=== PATIENT | female | born 1985 | race Two or more races ===

== ENCOUNTER 2018-07-08 06:30 | Inpatient (IN) | payer OTHER ==
[2018-07-08] MEDS ORDERED: ELECTROLYTE-148 SOLN 500 ML IV SCH (07:00)
[2018-07-08] MEDS ORDERED: ELECTROLYTE-148 SOLN 1,000 ML IV SCH ×2 (07:30→08:15)
[2018-07-08] MEDS ORDERED: CITRIC ACID/SODIUM CITRATE 30 ML UNIT-DOSE CUP PO ONE ×2 (08:08→11:00)
[2018-07-08 08:15] VITALS: BMI 29.0
[2018-07-08] MEDS ORDERED: OXYTOCIN 20 UNITS in 0.9% NS 20 UNIT/1,000 ML INFUS.BAG IV ONE (08:18)
--- NOTE | 2018-07-08 08:18 | HP ---
Past Medical History - Primary Care Physician PCP:: Ildefonso Scott - Admission Chief Complaint: repeat ltcs History of Present Illness: for repeat lt c s History Source: Patient Limitations to Obtaining History: No Limitations - Past Medical History DIRECTOR AIRPORT: No: Alzheimer's, CVA, Dementia, Migraine, Multiple Sclerosis, Peripheral Neuropathy, Parkinson's, Seizure, Syncope, TIA, Vertigo, Other Cardiovascular: No: AFIB, Aneurysm, Aortic Insufficiency, Aortic Stenosis, CAD, CHF, Deep Vein Thrombosis, HTN, Hyperlipdemia, RI, Mitral Insufficiency, Mitral Stenosis, Murmur, Pulmonary Hypertension, Other Pulmonary: No: Asthma, Bronchitis, Cancer, COPD, O2 Dependent, Pneumonia, Previously Intubated, Pulmonary Embolus, Pulmonary Fibrosis, Sleep Apnea, Other Gastrointestinal: No: Ascites, Cancer, Constipation, Crohn's Disease, Diverticulitis, Diverticulosis, Esophageal Varices, Gastritis, GERD, GI Bleed, Hemorrhoids, Hiatal Hernia, Inflamatory Bowel Disease, Irritable Bowel Disease, Pancreatitis, Peptic Ulcer Disease, Ulcerative Colitis, Other Hepatobiliary: No: Cirrhosis, Cholelithiasis, Cholecystitis, Choledocholithiasis , Hepatitis A, Hepatitis B, Hepatitis C, Other Renal/: No: Renal Failure, Renal Inusuff, BPH, Cancer, Hematuria, Hemodialysis , Neurogenic Bladder, Renal Calculi, UTI, Other Reproductive: No: Ectopic , Endometriosis, Fibroids, PID, Polycystic Ovary Syndrome, Postmenopausal, Other ...: 2 ...Para: 1 ...Term: 1 ...: 0 ...Spon : 0 ...Induced : 0 ...Multiple Gestation: 0 ... Weeks Gestation by Dates: 39 ...EDC by Dates: 07/12/18 ...EDC by Sono: 07/12/18 Heme/Onc: No: Anemia, B12 Deficiency, Bleeding Disorder, Cancer, Current Chemotherapy, Current Radiation Therapy, Hemochromatosis, Hypercoaguable State, Myeloproliferative Synd, Sickle Cell Disease, Sickle Cell Trait, Thrombocytopenia, Other Infectious Disease: No: AIDS, C-Diff, Herpes Zoster, HIV, MRSA, STD's, Tuberculosis, VREF, Other Psych: No: Addictions, Anxiety, Bipolar, Depression, Panic, Psychosis, Schizophrenia, Other Musculoskeletal: No: Bursitis, Chronic low back pain, Hemiparesis, Hemiplegia, Osteoarthritis, Paraplegia, Other Rheumatology: No: Fibromyalgia, Gout, Lupus, Rheumatoid Arthritis, Sarcoidosis, Vasculitis, Other ENT: No: Allergic Rhinitis, Sinusitis, Other Endocrine: No: Noah's Disease, Miriam's Disease, Diabetes Insipidus, Diabetes Mellitus, Hyperparathyroidism, Hyperthyroidism, Hypothyroidism, Osteopenia, SIADH, Other Dermatology: No: Basal Cell, Cellulitis, Eczema, Melanoma, Psoriasis, Squamous Cell, Other Additional Medical History: n/ a - Past Surgical History Past Surgical History: Yes: Hx Myomectomy: No Hx Transabdominal Cerclage: No Additional Surgical History: n/ a - Advance Directives Advance Directives: No: Living Will, Health Care Proxy, DNR, Organ Donor, Tissue Donor, MOLST - Smoking History Smoking history: Never smoked Have you smoked in the past 12 months: No - Alcohol/Substance Use Hx Alcohol Use: No History of Substance Use: reports: None - Social History Usual Living Arrangement: No: Alone, With Spouse, With Parent, With Significant Other, With Child, Assisted Living, [facility], Other ADL: Independent History of Recent Travel: No (none ) Home Medications - Allergies Allergies/Adverse Reactions: Allergies Allergy/AdvReac Type Severity Reaction Status Date / Time No Known Allergies Allergy Verified 07/08/18 07:56 - Home Medications Home Medications: Ambulatory Orders One Tablet 1 tab PO DAILY 07/08/18 Family Disease History - Family Disease History Family History: Unremarkable (none) Review of Systems Unable to obtain ROS, reason: none - Review of Systems Constitutional: denies: No Symptoms, Chills, Diaphoresis, Fever, Lethargy, Loss of Appetite, Malaise, Night Sweats, Unintentional Wgt. Loss, Weakness, Other Eyes: denies: No Symptoms, Blind Spots, Blurred Vision, Double Vision, Eye Pain , Floaters, Photophobia, Recent Change in Vision, Other HENT: denies: No Symptoms, Difficult Swallowing, Ear Discharge, Ear Pain, Epistaxis, Gingival Bleeding, Hearing Loss, Mouth Swelling, Nasal Congestion, Ocular Prosthesis, Throat Pain, Toothache, Ringing in Ears, Other Neck: denies: No Symptoms, Decreased ROM, Lumps, Pain on Movement, Stiffness, Swollen Glands, Tenderness, Other Cardiovascular: denies: No Symptoms, Chest Pain, Edema, Palpitations, Shortness of Breath, Other Gastrointestinal: denies: No Symptoms, Abdominal Pain, Bloating, Constipation, Diarrhea, Dysphagia, Indigestion, Melena, Nausea, Rectal Bleeding, Vomiting, Vomiting Blood, Other Genitourinary: denies: No Symptoms, Burning, Discharge, Dysuria, Flank Pain, Frequency, Hematuria, Incontinence, Lesions, Menses, Pain, Testicular Mass, Testicular Pain, Testicular Swelling, Urgency, Vaginal Bleeding, Other Breasts: denies: No Symptoms Reported, See HPI, Breast Implants, Discharge from Nipple, Lumps, Pain, Skin Changes, Other Musculoskeletal: denies: No Symptoms, Back Pain, Crepitus, Decreased ROM, Extremity Pain, Joint Pain, Joint Swelling, Muscle Pain, Muscle Cramps, Muscle Weakness, Other Integumentary: denies: No Symptoms, Blister, Bruising, Change in Color, Eczema, Erythema, Incision, Lesions, Lump, Pallor, Pruritis, Rash, Wound, Other Neurological: denies: No Symptoms, Change in LOC, Change in Speech, Confusion, Dizziness, Headache, Incoordination, Numbness, Parasthesia, Pre-Existing Deficit , Seizure, Syncope, Tremors, Unsteady Gait, Weakness, Other Endocrine: denies: No Symptoms, Excessive Sweating, Flushing, Increased Hunger, Increased Thirst, Intolerance to Cold, Intolerance to Heat, Unexplained Weight Gain, Unexplained Weight Loss, Other Hematology/Lymphatic: denies: No Symptoms, Easily Bruised, Excessive Bleeding, Swollen Glands, Other Physical Exam - Maternity Constitutional: Yes: Well Nourished, No Distress, Calm Eyes: Yes: WNL, Conjunctiva Clear, EOM Intact HENT: Yes: WNL, Atraumatic, Normocephalic Neck: Yes: WNL, Supple, Trachea Midline Cardiovascular: Yes: WNL, Regular Rate and Rhythm Breast(s): Yes: WNL - Abdominal Exam/OB Fundal Height: 39 Number of Fetuses: Single Presentation: Vertex Contractions: Yes Regularity: Irregular Intensity: Mild/Mod Monitor Mode: External Heart Rate Location: [facility] Category: I Accelerations: Uniform Decelerations: None - Vaginal Exam/OB Vaginal Bleediing: No Speculum Exam: No Dilatation (cm): 1cm Amniotic Membrane Status: Intact Presentation: Vertex/Position Station: -3 - Physical Exam Musculoskeletal: No: WNL, Back Pain, Joint Stiffness, Joint Swelling, Muscle Pain, Muscle Weakness, Other Extremities: No: WNL, Amputation, Calf Tenderness, Cold, Cool, Cyanosis, Deformity, Delayed Capillary Refill, Erythema, External Rotation, Internal Rotation, Pallor, Shortened, Other Edema: Yes Edema: LUE: 1+, RUE: 1+, LLE: 1+, RLE: 1+ Integumentary: No: WNL, Body Piercing, Bruising, Erythema, Incision, Jaundice, Laceration, Petechiae, Pressure Ulcer, Rash, Skin Tear, Tattoos, Tenting, Onychomycosis, Venous Stasis Changes, Other Deep Tendon Reflex Grade: Normal +2 ...Motor Strength: WNL, LUE, LLE, RUE, RLE Psychiatric: No: WNL, Alert, Oriented, Agitated, Suicidal Ideation, Other Hemorrhage Risk Assessment - Risk Factors Medium Risk Factors: Yes: Prior , uterine surgery,or multiple laparotomies High Risk Factors: Yes: None Risk Score: 1 Risk Level: Medium Risk Problem List - Problems (1) delivery delivered Code(s): O82 - ENCOUNTER FOR DELIVERY WITHOUT INDICATION (2) deliv due to previous difficult deliv, deliv, curr hospitaliz Code(s): O82 - ENCOUNTER FOR DELIVERY WITHOUT INDICATION; Z87.59 - PERSONAL HISTORY OF COMP OF PREG, CHLDBRTH AND THE PUERP Assessment/Plan for repeat c section due to contractions from previous c section
[2018-07-08] MEDS ORDERED: PHENYLEPHRINE HCL 10 MG/1 ML SINGLE DOSE VIAL ONE (08:25)
[2018-07-08] MEDS ORDERED: PROPOFOL 20 ML ONE (08:28)
[2018-07-08] MEDS ORDERED: SUCCINYLCHOLINE CHLORIDE 200 MG/10 ML VIAL ONE (08:28)
[2018-07-08] MEDS ORDERED: ceFAZolin SODIUM 1 GM VIAL ONE (08:50)
[2018-07-08] MEDS ORDERED: morphine SULFATE/Preservative Free 0.5 MG/ML (1cc Syringe) ONE (08:53)
[2018-07-08] MEDS ORDERED: ESMOLOL HCL 100,000 MCG/10 ML VIAL ONE (09:06)
[2018-07-08] MEDS ORDERED: OXYTOCIN 10 UNITS/ML VIAL ONE (09:07)
[2018-07-08] MEDS ORDERED: LIDOCAINE HCL 4% TOPICAL SOLN (50 ML/BOTTLE) ONE (09:07)
[2018-07-08] MEDS ORDERED: KETOROLAC TROMETHAMINE 30 MG/1 ML VIAL ONE (09:20)
[2018-07-08] MEDS ORDERED: ONDANSETRON 4 MG/2 ML VIAL IVPUSH PRN (09:44)
[2018-07-08] MEDS ORDERED: oxyCODONE HCL 5 MG TABLET PO PRN (10:44)
[2018-07-08] MEDS ORDERED: METHYLERGONOVINE MALEATE 0.2 MG/1 ML AMP IM PRN (10:44)
[2018-07-08] MEDS ORDERED: IBUPROFEN 600 MG TABLET (FP) PO PRN (10:44)
[2018-07-08] MEDS ORDERED: OXYTOCIN 20 UNITS in 0.9% NS 20 UNIT/1,000 ML INFUS.BAG IV SCH (10:45)
[2018-07-08] MEDS ORDERED: TUBERCULIN PPD 5 TU/0.1ML SYRINGE (IN PATIENT USE ONLY) ID ONE (11:00)
[2018-07-08] MEDS: PRENATAL VITAMINS W/ FOLIC ACID TABLET (FP) PO SCH (11:27)
[2018-07-08] MEDS: IBUPROFEN 800 MG/8 ML IJ IVPB PRN ×2 (16:31→23:56)
--- NOTE | 2018-07-08 21:45 | OP ---
Operative Note - Note: Operative Date: 07/08/18 Pre-Operative Diagnosis: repeat lt cs in labor Operation: repeat lt c s Findings: no adhesions Implants: n/a Post-Operative Diagnosis: Same as Pre-op Surgeon: Ildefonso Scott Journeyman Machinist: Dawit Patel Anesthesiologist/WET PROCESS ASSISTANT HEAD MILLER: Dasha Gibson Anesthesia: Spinal Specimens Removed: n/ a Estimated Blood Loss (mls): 750 Operative Report Dictated: Yes
[2018-07-09] MEDS: ACETAMINOPHEN 325 MG TABLET (FP) PO PRN ×3 (05:37→21:43)
[2018-07-09 08:18] LABS: BASO % 0.4 % (0-2.0); EOS % 1.5 % (0-4.5); HEMATOCRIT 30.9 % (32.4-45.2); HEMOGLOBIN 10.3 GM/dL (10.7-15.3); LYMPH % 7.9 % (8-40); MCH 29.2 pg (25.7-33.7); MCHC 33.4 g/dl (32.0-36.0); MEAN CELL VOLUME 87.2 fl (80-96); MEAN PLT VOLUME 9.1 fl (7.5-11.1); NEUT % 82.2 % (42.8-82.8); PLATELET COUNT 208 K/MM3 (134-434); RBC 3.54 M/mm3 (3.60-5.2); RDW 15.3 % (11.6-15.6); WHITE BLOOD COUNT 10.9 K/mm3 (4.0-10.0)
[2018-07-09] MEDS: oxyCODONE HCL 5 MG TABLET PO PRN ×2 (08:39→14:31)
[2018-07-09] MEDS: IBUPROFEN 600 MG TABLET (FP) PO PRN ×3 (08:39→21:43)
[2018-07-09] MEDS: ENOXAPARIN NA (PORCINE) 40 MG/0.4 ML DISP.SYRIN SQ SCH (09:48)
[2018-07-09] MEDS: PRENATAL VITAMINS W/ FOLIC ACID TABLET (FP) PO SCH (09:48)
[2018-07-09] MEDS ORDERED: DIPHTH,PERTUSS(ACELL),TET 0.5 ML DISP.SYRIN IM ONE (10:00)
[2018-07-09] MEDS ORDERED: ENOXAPARIN NA (PORCINE) 30 MG/0.3 ML DISP.SYRIN SQ SCH (10:00)
[2018-07-09] MEDS ORDERED: BISACODYL 10 MG SUPP.RECT RC PRN (10:44)
[2018-07-09] MEDS ORDERED: diphenhydrAMINE HCL 25 MG CAPSULE (FP) PO ONE (10:49)
--- NOTE | 2018-07-09 10:56 | PN ---
Progress Note (short form) - Note Progress Note: Anesthesia POD#1 S/P under spinal and Duramorph VSS,no N/V,legs are strong,face and abdomen is Ichy. Writing the order for Benedryl 25 mg PO. Daniela Berumen MD.
--- NOTE | 2018-07-09 14:19 | PN ---
Post Progress Note - Subjective Subjective: pt is doing well, no complaints Post Day: 1 Type of Delivery: Repeat C/S Vital Signs: Vital Signs Temperature 98.5 F 07/09/18 10:00 Pulse Rate 110 H 07/09/18 10:00 Respiratory Rate 18 07/09/18 10:00 Blood Pressure 117/60 07/09/18 10:00 O2 Sat by Pulse Oximetry (%) 98 07/08/18 11:55 Breast Exam: Yes: Soft Uterus: Yes: Fundus Firm, Fundus below umbilicus, Non-tender Incision: Yes: Dressing dry and intact, Sutures intact Abdomen/GI: Yes: Abdomen soft, Passing flatus, Tolerating PO Lochia: Yes: Rubra Lochia, amount: Small Extremities: Yes: Calves non-tender Perineum: Yes: Intact Activity: Ambulating - Labs Labs: CBC WBC 10.9 K/mm3 (4.0-10.0) H 07/09/18 07:00 RBC 3.54 M/mm3 (3.60-5.2) L 07/09/18 07:00 Hgb 10.3 GM/dL (10.7-15.3) L 07/09/18 07:00 Hct 30.9 % (32.4-45.2) L 07/09/18 07:00 MCV 87.2 fl (80-96) 07/09/18 07:00 MCH 29.2 pg (25.7-33.7) 07/09/18 07:00 MCHC 33.4 g/dl (32.0-36.0) 07/09/18 07:00 RDW 15.3 % (11.6-15.6) 07/09/18 07:00 Plt Count 208 K/MM3 (134-434) 07/09/18 07:00 MPV 9.1 fl (7.5-11.1) 07/09/18 07:00 Absolute Neuts (auto) 9.0 K/mm3 (1.5-8.0) H 07/09/18 07:00 Neutrophils % 82.2 % (42.8-82.8) D 07/09/18 07:00 Lymphocytes % 7.9 % (8-40) L D 07/09/18 07:00 Monocytes % 8.0 % (3.8-10.2) 07/09/18 07:00 Eosinophils % 1.5 % (0-4.5) 07/09/18 07:00 Basophils % 0.4 % (0-2.0) 07/09/18 07:00 Nucleated RBC % 0 % (0-0) 07/09/18 07:00 Other Findings, Remarks: doing well Problem List - Problems (1) delivery delivered Code(s): O82 - ENCOUNTER FOR DELIVERY WITHOUT INDICATION (2) deliv due to previous difficult deliv, deliv, curr hospitaliz Code(s): O82 - ENCOUNTER FOR DELIVERY WITHOUT INDICATION; Z87.59 - PERSONAL HISTORY OF COMP OF PREG, CHLDBRTH AND THE PUERP Assessment/Plan ambulating , tolerating diet , and pain mgmt
[2018-07-09] MEDS: SIMETHICONE 80 MG TAB.CHEW (FP) PO PRN ×2 (14:33→21:42)
[2018-07-09] MEDS: SENNOSIDES/DOCUSATE COMBO (SENNA PLUS) TABLET (UD) PO PRN (21:44)
[2018-07-10] MEDS: ACETAMINOPHEN 325 MG TABLET (FP) PO PRN ×3 (04:27→16:50)
[2018-07-10] MEDS: IBUPROFEN 600 MG TABLET (FP) PO PRN ×3 (04:27→16:50)
[2018-07-10] MEDS: SIMETHICONE 80 MG TAB.CHEW (FP) PO PRN ×2 (04:28→16:52)
[2018-07-10] MEDS: PRENATAL VITAMINS W/ FOLIC ACID TABLET (FP) PO SCH (10:12)
[2018-07-10] MEDS: ENOXAPARIN NA (PORCINE) 40 MG/0.4 ML DISP.SYRIN SQ SCH (10:13)
--- NOTE | 2018-07-10 14:41 | PN ---
Post Progress Note - Subjective Subjective: pt is doing well, no complaints Post Day: 2 Type of Delivery: Repeat C/S Vital Signs: Vital Signs Temperature 98.2 F 07/10/18 09:52 Pulse Rate 101 H 07/10/18 09:52 Respiratory Rate 18 07/10/18 09:52 Blood Pressure 120/74 07/10/18 09:52 O2 Sat by Pulse Oximetry (%) 98 07/08/18 11:55 Breast Exam: Yes: Soft Uterus: Yes: Fundus Firm, Fundus below umbilicus, Non-tender Incision: Yes: Dressing dry and intact, Sutures intact Abdomen/GI: Yes: Abdomen soft, Passing flatus, Tolerating PO Lochia: Yes: Serosa Lochia, amount: Small Extremities: Yes: Calves non-tender Perineum: Yes: Intact Activity: Ambulating - Labs Labs: CBC WBC 10.9 K/mm3 (4.0-10.0) H 07/09/18 07:00 RBC 3.54 M/mm3 (3.60-5.2) L 07/09/18 07:00 Hgb 10.3 GM/dL (10.7-15.3) L 07/09/18 07:00 Hct 30.9 % (32.4-45.2) L 07/09/18 07:00 MCV 87.2 fl (80-96) 07/09/18 07:00 MCH 29.2 pg (25.7-33.7) 07/09/18 07:00 MCHC 33.4 g/dl (32.0-36.0) 07/09/18 07:00 RDW 15.3 % (11.6-15.6) 07/09/18 07:00 Plt Count 208 K/MM3 (134-434) 07/09/18 07:00 MPV 9.1 fl (7.5-11.1) 07/09/18 07:00 Absolute Neuts (auto) 9.0 K/mm3 (1.5-8.0) H 07/09/18 07:00 Neutrophils % 82.2 % (42.8-82.8) D 07/09/18 07:00 Lymphocytes % 7.9 % (8-40) L D 07/09/18 07:00 Monocytes % 8.0 % (3.8-10.2) 07/09/18 07:00 Eosinophils % 1.5 % (0-4.5) 07/09/18 07:00 Basophils % 0.4 % (0-2.0) 07/09/18 07:00 Nucleated RBC % 0 % (0-0) 07/09/18 07:00 Problem List - Problems (1) delivery delivered Code(s): O82 - ENCOUNTER FOR DELIVERY WITHOUT INDICATION (2) deliv due to previous difficult deliv, deliv, curr hospitaliz Code(s): O82 - ENCOUNTER FOR DELIVERY WITHOUT INDICATION; Z87.59 - PERSONAL HISTORY OF COMP OF PREG, CHLDBRTH AND THE PUERP Assessment/Plan dc pt home tomorrow
--- NOTE | 2018-07-10 14:48 | DS ---
Physical Exam-CIGARETTE SELLER Vital Signs: Vital Signs Temperature 98.2 F 07/10/18 09:52 Pulse Rate 101 H 07/10/18 09:52 Respiratory Rate 18 07/10/18 09:52 Blood Pressure 120/74 07/10/18 09:52 O2 Sat by Pulse Oximetry (%) 98 07/08/18 11:55 wnl vss, ambulating well Constitutional: Yes: Well Nourished, No Distress, Calm Eyes: Yes: WNL, Conjunctiva Clear, EOM Intact HENT: Yes: WNL, Atraumatic, Normocephalic Neck: Yes: WNL, Supple, Trachea Midline Cardiovascular: Yes: WNL, Regular Rate and Rhythm Respiratory: Yes: WNL, Regular, CTA Bilaterally Gastrointestinal: Yes: WNL ...Rectal Exam: Yes: WNL Renal/: Yes: WNL Pelvis: Yes: WNL External Genitalia: Yes: Normal Internal Exam Deferred: Yes Vaginal Exam: Yes: Normal Cervix: Yes: Normal Uterus: Yes: Normal Adnexa: Normal: Left, Right ....Post : Yes: Uterus firm Breast(s): Yes: WNL Musculoskeletal: Yes: WNL Extremities: Yes: WNL Edema: Yes Edema: LUE: 1+, RUE: 1+, LLE: 1+, RLE: 1+ Integumentary: Yes: WNL Wound/Incision: Yes: Clean/Dry, Well Approximated, Sutures Intact, Dressing Dry and Intact, Dressing Removed Neurological: Yes: WNL, Alert, Oriented ...Motor Strength: WNL Psychiatric: Yes: WNL Labs: CBC, BMP 07/09/18 07:00 Delivery - Delivery Section: Repeat Type of Anesthesia: Spinal Episiotomy/Laceration: None EBL (cc): 700 Delivery, Single - Stages of Labor Date of Delivery: 07/08/18 Time of Delivery: 09:09 Time Placenta Delivered: 09:11 - Condition of Infant Medical Record Retrieval Specialist/Apprenticeship Training Representative Present: Yes Name: Abril Sood Gender: Female Weight: 2.835 kg Position: Left, OA Total Hours ROM (Hrs/Mins): 1 min - 1 Minute Total Score: 9 5 Minutes Total Score: 9 - Feeding Plan Initial Plan: Elected not to breastfeed exclusively throughout hospitalization Discharge Summary Reason For Visit: Current Active Problems brenneniv due to previous difficult soo vann curr hospitaliz (Acute) delivery delivered (Acute) Condition: Stable - Instructions Diet, Activity, Other Instructions: regular Disposition: HOME - Home Medications Comprehensive Discharge Medication List: Ambulatory Orders One Tablet 1 tab PO DAILY 07/08/18
[2018-07-11] MEDS: ACETAMINOPHEN 325 MG TABLET (FP) PO PRN ×2 (00:35→11:34)
[2018-07-11] MEDS: IBUPROFEN 600 MG TABLET (FP) PO PRN ×2 (00:35→11:34)
--- NOTE | 2018-07-11 00:35 | PN ---
Post Progress Note - Subjective Subjective: pt is doing well Post Day: 3 Type of Delivery: Repeat C/S Vital Signs: Vital Signs Temperature 97.4 F L 07/10/18 20:21 Pulse Rate 94 H 07/10/18 20:21 Respiratory Rate 20 07/10/18 20:21 Blood Pressure 126/76 07/10/18 20:21 O2 Sat by Pulse Oximetry (%) 98 07/08/18 11:55 Breast Exam: Yes: Soft Uterus: Yes: Fundus Firm, Fundus below umbilicus Incision: Yes: Dressing dry and intact, Sutures intact Abdomen/GI: Yes: Abdomen soft, Passing flatus, Tolerating PO Lochia: Yes: Alba Lochia, amount: Small Extremities: Yes: Calves non-tender Perineum: Yes: Intact Activity: Ambulating - Labs Labs: CBC WBC 10.9 K/mm3 (4.0-10.0) H 07/09/18 07:00 RBC 3.54 M/mm3 (3.60-5.2) L 07/09/18 07:00 Hgb 10.3 GM/dL (10.7-15.3) L 07/09/18 07:00 Hct 30.9 % (32.4-45.2) L 07/09/18 07:00 MCV 87.2 fl (80-96) 07/09/18 07:00 MCH 29.2 pg (25.7-33.7) 07/09/18 07:00 MCHC 33.4 g/dl (32.0-36.0) 07/09/18 07:00 RDW 15.3 % (11.6-15.6) 07/09/18 07:00 Plt Count 208 K/MM3 (134-434) 07/09/18 07:00 MPV 9.1 fl (7.5-11.1) 07/09/18 07:00 Absolute Neuts (auto) 9.0 K/mm3 (1.5-8.0) H 07/09/18 07:00 Neutrophils % 82.2 % (42.8-82.8) D 07/09/18 07:00 Lymphocytes % 7.9 % (8-40) L D 07/09/18 07:00 Monocytes % 8.0 % (3.8-10.2) 07/09/18 07:00 Eosinophils % 1.5 % (0-4.5) 07/09/18 07:00 Basophils % 0.4 % (0-2.0) 07/09/18 07:00 Nucleated RBC % 0 % (0-0) 07/09/18 07:00 Problem List - Problems (1) delivery delivered Code(s): O82 - ENCOUNTER FOR DELIVERY WITHOUT INDICATION (2) deliv due to previous difficult deliv, deliv, curr hospitaliz Code(s): O82 - ENCOUNTER FOR DELIVERY WITHOUT INDICATION; Z87.59 - PERSONAL HISTORY OF COMP OF PREG, CHLDBRTH AND THE PUERP Assessment/Plan dc home today, will be fu in 2 weeks
[2018-07-11] MEDS: SIMETHICONE 80 MG TAB.CHEW (FP) PO PRN (00:36)
[2018-07-11] MEDS: SENNOSIDES/DOCUSATE COMBO (SENNA PLUS) TABLET (UD) PO PRN (00:36)
[2018-07-11 07:47] LABS: BASO % 0.4 % (0-2.0); EOS % 3.5 % (0-4.5); HEMATOCRIT 27.8 % (32.4-45.2); HEMOGLOBIN 9.4 GM/dL (10.7-15.3); LYMPH % 30.2 % (8-40); MCH 29.1 pg (25.7-33.7); MCHC 33.7 g/dl (32.0-36.0); MEAN CELL VOLUME 86.4 fl (80-96); MONO % 9.2 % (3.8-10.2); NEUT % 56.7 % (42.8-82.8); PLATELET COUNT 244 K/MM3 (134-434); RBC 3.22 M/mm3 (3.60-5.2); RDW 15.1 % (11.6-15.6); WHITE BLOOD COUNT 7.8 K/mm3 (4.0-10.0)
[2018-07-11] MEDS: ENOXAPARIN NA (PORCINE) 40 MG/0.4 ML DISP.SYRIN SQ SCH (10:23)
[2018-07-11] MEDS: PRENATAL VITAMINS W/ FOLIC ACID TABLET (FP) PO SCH (10:23)
[2018-07-11 12:27] VITALS: BP 122/78; PULSE 89; TEMP 98.4
--- NOTE | 2018-07-15 09:42 | PATH ---
Surgical Pathology Report Patient Name: NATASHA MUÑIZ [facility]. Rec. #: [id number] /Age/Gender: 1985 (Age: 32) / F Account: [id number] Location: [facility] OBS/DEPUTY REGISTER OF DEEDS Taken: 07/08/2018 Received: 07/09/2018 Reported: 07/15/2018 Physicians: Ildefonso Scott MD Specimen(s) Received A: PLACENTA B: LEFT OVARIAN CYST Clinical History , 39 weeks and removal of left ovarian cyst Final Diagnosis A. PLACENTA: THIRD TRIMESTER PLACENTA. TRIVASCULAR CORD. MEMBRANES WITH NO DIAGNOSTIC ABNORMALITIES. B. LEFT OVARIAN CYST, EXCISION: OVARIAN TISSUE WITH CORPUS LUTEUM CYST AND CYSTIC FOLLICLES. Electronically Signed Husam Salazar M.D. Gross Description A. The specimen is received fresh labeled placenta and is a 489 gram, 18.5 x 14.5 x 3.0 cm. placenta with attached membranes and umbilical cord. The attached membranes are segal, translucent with focal opacities and insert marginally. The umbilical cord measures 32 cm. in length and averages 1.3 cm. in diameter. The cord inserts eccentrically, 4.5 cm. to the nearest margin. No true knots or strictures are identified. Cut surface of the umbilical cord reveals 3 vessels. The surface is irwin-blue with minimal fibrin deposition and appropriate caliber vessels. The maternal surface is red-brown with focal defects. Sectioning reveals red-brown, spongy parenchyma. No lesions are identified. Conductor Orchestra sections are submitted in three cassettes as follows: 1- membrane rolls and umbilical cord; 2-3- full thickness sections of placenta. B. Received in formalin labeled "left ovarian cyst," and a 7.5 x 3.5 x 1.3 cm focally disrupted cystic structure. The outer surface is segal-sanchez and smooth. The inner lining is smooth. No excrescences are identified. Conductor Orchestra sections are submitted in 3 cassettes. 07/10/201807/10/2018
== END 2018-07-11 12:50 | disposition home or self-care (01) | DRG 788 ==
LOC: JLDR 06:30 → J3W 12:15
PROVIDERS: ADMIT Obstetrics & Gynecology; ATTEND Obstetrics & Gynecology
PROC: 10D00Z1 Extraction of Products of Conception, Low, Open Approach (ICD-10-PCS; principal; 2018-07-08)
DX: O34.211 Maternal care for low transverse scar from previous cesarean delivery (principal); Z3A.39 39 weeks gestation of pregnancy; Z37.0 Single live birth
CPT/HCPCS: 36415; 85025; 86593; 88304-TC; 88307-TC; 90715